=== PATIENT | male | born 1985 | race Asian ===

== ENCOUNTER 2020-08-08 09:22 | Emergency (ER) | payer OTHER ==
[~2020-08-08] VITALS: Ht 154.9 cm; Wt 75.9 kg
[2020-08-08] MEDS ORDERED: CETI10TA16 PO (10:33)
[2020-08-08] MEDS ORDERED: PRED50TA PO (10:33)
--- NOTE | 2020-08-08 10:33 | PHYS DOC ---
Past Medical History Past Medical History: No Pertinent History Past Surgical History: No Surgical History Smoking Status: Never Smoker Alcohol Use: Occasionally General Adult EDM: Chief Complaint: COUGH HPI: HPI: Patient is a 35 year old male patient presenting to the ED today complaining of sore throat and runny nose, symptoms began yesterday. Patient denies any fever coughing or congestion. Review of Systems: Review of Systems: Constitutional: Denies fever or chills. [] Eyes: Denies change in visual acuity. [] HENT: Reports nasal congestion and sore throat. [] Respiratory: Denies cough or shortness of breath. [] Cardiovascular: Denies chest pain or edema. [] GI: Denies abdominal pain, nausea, vomiting, bloody stools or diarrhea. [] : Denies dysuria. [] Musculoskeletal: Denies back pain or joint pain. [] Integument: Denies rash. [] Neurologic: Denies headache, focal weakness or sensory changes. [] Psychiatric: Denies depression or anxiety. [] Heart Score: Risk Factors: Risk Factors: DM, Current or recent (<one month) smoker, HTN, HLP, family history of CAD, obesity. Risk Scores: Score 0 - 3: 2.5% MACE over next 6 weeks - Discharge Home Score 4 - 6: 20.3% MACE over next 6 weeks - Admit for Clinical Observation Score 7 - 10: 72.7% MACE over next 6 weeks - Early Invasive Strategies Physical Exam: PE: Constitutional: Well developed, well nourished, no acute distress, non-toxic appearance. [] HENT: Normocephalic, atraumatic, bilateral external ears normal, oropharynx moist, no oral exudates, nose normal. [] Eyes: PERRLA, EOMI, slight subconjunctival hemorrhage noted on the left cornea from sneezing , no discharge. [] Neck: Normal range of motion, no tenderness, supple, no stridor. [] Cardiovascular:Heart rate regular rhythm, no murmur [] Lungs & Thorax: Bilateral breath sounds clear to auscultation [] Abdomen: Bowel sounds normal, soft, no tenderness, no masses, no pulsatile masses. [] Skin: Warm, dry, no erythema, no rash. [] Back: No tenderness, no CVA tenderness. [] Extremities: No tenderness, no cyanosis, no clubbing, ROM intact, no edema. [] Neurologic: Alert and oriented X 3, normal motor function, normal sensory function, no focal deficits noted. [] Psychologic: Affect normal, judgement normal, mood normal. [] Current Patient Data: Vital Signs: Vital Signs Date Time Temp Pulse Resp B/P (MAP) Pulse Ox O2 Delivery O2 Flow Rate FiO2 08/08/20 09:35 97.7 88 16 131/75 (93) 98 Room Air 97.7 EKG: EKG: [] Radiology/Procedures: Radiology/Procedures: [] Course & Med Decision Making: Course & Med Decision Making Pertinent Labs and Imaging studies reviewed. (See chart for details) This is a 35-year-old male patient presenting to the ED today with sore throat and nasal congestion, symptoms since yesterday. Negative rapid strep. Covid test pending. Discharge to home. Supportive care measures provided Dragon Disclaimer: Luzma Disclaimer: This electronic medical record was generated, in whole or in part, using a voice recognition dictation system. Departure Departure Impression: Primary Impression: Upper respiratory infection Qualified Codes: J06.9 - Acute upper respiratory infection, unspecified Additional Impressions: Pharyngitis, acute Qualified Codes: J02.9 - Acute pharyngitis, unspecified Person under investigation for COVID-19 Disposition: 01 DC HOME SELF CARE/HOMELESS Condition: STABLE Referrals: UNKNOWN PCP NAME (PCP) follow up with your doctor in 1-2 weeks Patient Instructions: Upper Respiratory Infection, Adult, [id number], Viral Pharyngitis Additional Instructions: You were evaluated in the emergency room with sore throat and nasal congestion. Your rapid strep test is negative. We tested you for COVID-19. Quarantine yourself until you hear from us or 10 days from today. Maintain good and hygiene. Wear your mask in public. Follow-up with your doctor in 1 to 2 weeks. Take the prescribed medications as ordered. Scripts Cetirizine Hcl (CETIRIZINE HCL) 10 Mg Tablet 1 TAB PO DAILY, #30 TAB 5 Refills Prov: MUTUNGASAMSON [employer] 08/08/20 Prednisone (PREDNISONE) 50 Mg Tablet 1 TAB PO DAILY, #5 TAB Prov: MUTUNGASAMSON [employer] 08/08/20 [employer] Aug 08, 2020 10:33
[2020-08-08 10:56] VITALS: BP 119/83
--- NOTE | 2020-08-09 13:27 | NUR ---
IP: Attempted to contact pt concerning COVID results. No answer. left a voicemail to return the call.
== END 2020-08-08 11:21 | disposition home or self-care (01) ==
LOC: ER 09:22
DX: J02.9 Acute pharyngitis, unspecified (principal); Z20.822 Contact with and (suspected) exposure to COVID-19
CPT/HCPCS: 87070; 87880; 99283; C9803; U0003